=== PATIENT | female | born 1970 | race Caucasian/White ===

== ENCOUNTER 2019-11-07 10:24 | Emergency (ER) | payer OTHER ==
[~2019-11-07] VITALS: Ht 170.2 cm; Wt 65.8 kg
--- NOTE | 2019-11-07 10:51 | Emergency Room Report ---
History of Present Illness General Chief Complaint: Back Pain-No Injury Source: Patient Present Illness HPI Patient is a 49-year-old female presents after increased right-sided flank pain. She reports having prior history of kidney stones intermittently. States he is had multiple episodes of similar symptoms in the past associated with some right-sided flank pain as well as urinary hesitancy. Reports having previous UVJ stones. Denies any vomiting. Had recent visit to her primary care and apparently had some bilirubinuria. Allergies: Coded Allergies: CEFTRIAXONE (Verified Allergy, Intermediate, itchiness, 11/07/19) MORPHINE (Verified Allergy, Unknown, 11/07/19) TRAZODONE (Verified Allergy, Unknown, 11/07/19) COVID-19 Screening Contact w/high risk pt: No Recent Travel to affected area: No Experienced COVID-19 symptoms?: No Patient History Past Medical History: see triage record Last Menstrual Period: hysterectomy Now: No Reviewed Nursing Documentation: PMH: Agreed; PSxH: Agreed Nursing Documentation-PMH Past Medical History: No History, Except For Hx Diabetes: Yes Hx Cancer: Yes - left breast Review of Systems All Other Systems: negative except mentioned in HPI Physical Exam Vital Signs Date Time Temp Pulse Resp B/P (MAP) Pulse Ox O2 Delivery O2 Flow Rate FiO2 11/07/19 10:30 98.4 75 20 118/67 (84) 94 Room Air Sp02 EP Interpretation: reviewed, normal General Appearance: normal inspection, well appearing, no apparent distress, alert, GCS 15 Head: atraumatic ENT: normal ENT inspection, hearing grossly normal, normal voice Neck: normal inspection, full range of motion, supple, no bony tend Respiratory: normal inspection, no respiratory distress, no retraction Cardiovascular #1: no edema Gastrointestinal: normal inspection, soft Musculoskeletal: normal inspection, back normal, normal range of motion Neurologic: alert, motor strength/tone normal, demand manager III-XII nml as tested, oriented x3, responsive, speech normal, normal inspection Psychiatric: normal inspection, judgement/insight normal, mood/affect normal Skin: no rash Medical Decision Making Diagnostic Impression: Primary Impression: Kidney stone on right side Additional Impression: Urinary tract infection ER Course Patient presented for flank pain. Differential diagnosis include was not limited to urinary tract infection, pyelonephritis, kidney stone among others. Because of complexity of patient's case laboratory tests and imaging studies were ordered. Patient was given IV fluids as well as IV Toradol. As she started on IV antibiotics. Patient does not appear to have any definite evidence of hydronephrosis. patient was noted to have some increased itchiness after being given Rocephin. Patient subsequently requested IV Benadryl. Patient was given Benadryl as well as Solu-Medrol but does not appear to have any evidence of acute urticarial reaction at this time. Skin appeared to be normal without any evidence of urticaria or discoloration.Patient states that she is taken Rocephin in the past. She states she is previously also taken Keflex. Patient be given prescription for Bactrim. Ultrasound showed no evidence of hydronephrosis.Patient will be discharged home. Patient states she has previously scheduled urology appointment and will follow-up with urologist. This medical record is generated with [employer] collar stay fuser tender software. There may be some collar stay fuser tender discrepancies related to use of this software Labs Test 11/07/19 11:11 White Blood Count 14.0 K/UL (4.8-10.8) Red Blood Count 5.24 M/UL (4.20-5.40) Hemoglobin 16.4 G/DL (12.0-16.0) Hematocrit 47.6 % (37.0-47.0) Mean Corpuscular Volume 91 FL (80-99) Mean Corpuscular Hemoglobin 31.4 PG (27.0-31.0) Mean Corpuscular Hemoglobin Concent 34.5 G/DL (32.0-36.0) Red Cell Distribution Width 12.4 % (11.6-14.8) Platelet Count 318 K/UL (150-450) Mean Platelet Volume 6.3 FL (6.5-10.1) Neutrophils (%) (Auto) 64.8 % (45.0-75.0) Lymphocytes (%) (Auto) 27.0 % (20.0-45.0) Monocytes (%) (Auto) 4.4 % (1.0-10.0) Eosinophils (%) (Auto) 2.5 % (0.0-3.0) Basophils (%) (Auto) 1.4 % (0.0-2.0) Urine Color Pale yellow Urine Appearance Cloudy Urine pH 8 (4.5-8.0) Urine Specific [place] 1.020 (1.005-1.035) Urine Protein Negative (NEGATIVE) Urine Glucose (UA) Negative (NEGATIVE) Urine Ketones Negative (NEGATIVE) Urine Blood 1+ (NEGATIVE) Urine Nitrite Negative (NEGATIVE) Urine Bilirubin Negative (NEGATIVE) Urine Urobilinogen Normal MG/DL (0.0-1.0) Urine Leukocyte Esterase 2+ (NEGATIVE) Urine RBC 2-4 /HPF (0 - 2) Urine WBC 10-15 /HPF (0 - 2) Urine Squamous Epithelial Cells Few /LPF (NONE/OCC) Urine Amorphous Sediment Many /LPF (NONE) Urine Bacteria Few /HPF (NONE) Sodium Level 144 MMOL/L (136-145) Potassium Level 4.5 MMOL/L (3.5-5.1) Chloride Level 104 MMOL/L (98-107) Carbon Dioxide Level 29 MMOL/L (21-32) Anion Gap 11 mmol/L (5-15) Blood Urea Nitrogen 16 mg/dL (7-18) Creatinine 1.0 MG/DL (0.55-1.30) Estimat Glomerular Filtration Rate 58.5 mL/min (>60) Glucose Level 92 MG/DL (74-106) Calcium Level 9.8 MG/DL (8.5-10.1) Total Bilirubin 0.4 MG/DL (0.2-1.0) Aspartate Amino Transf (AST/SGOT) 19 U/L (15-37) Alanine Aminotransferase (ALT/SGPT) 23 U/L (12-78) Alkaline Phosphatase 68 U/L (46-116) Total Protein 7.8 G/DL (6.4-8.2) Albumin 4.0 G/DL (3.4-5.0) Globulin 3.8 g/dL Albumin/Globulin Ratio 1.1 (1.0-2.7) Lipase 142 U/L (73-393) Last Vital Signs Date Time Temp Pulse Resp B/P (MAP) Pulse Ox O2 Delivery O2 Flow Rate FiO2 11/07/19 10:30 98.4 75 20 118/67 (84) 94 Room Air Status: improved Disposition: HOME, SELF-CARE Condition: Stable Scripts Trimethoprim/Sulfamethoxazole 160/800* (BACTRIM DS TABLET*) 1 Each Tablet 1 TAB ORAL Q12H, #14 TAB 0 Refills Prov: Juan Francisco Adoron MD 11/07/19 Juan Francisco Adorno MD November 07, 2019 10:51
[2019-11-07 11:00] VITALS: BP 118/67
[2019-11-07] MEDS ORDERED: Ketorolac 30mg Inj IV ONE ×2 (11:00→12:00)
--- NOTE | 2019-11-07 11:05 | NUR ---
ED Nurse Note: Patient walked in to ER from home due to right flank and right groin pain x 3 weeks. States pain when urinating. No blood in urine. Patient stated had 13 surgeries regarding kidney stones. Patient presented calm, AAO x4, VSS at this time, skin is warm to touch.
--- NOTE | 2019-11-07 11:15 | NUR ---
ED Nurse Note: US by bed side
[2019-11-07 11:28] LABS: BASOPHILS % (AUTO) 1.4 % (0.0-2.0); EOSINOPHILS % (AUTO) 2.5 % (0.0-3.0); HEMATOCRIT 47.6 % (37.0-47.0); HEMOGLOBIN 16.4 G/DL (12.0-16.0); MEAN CORPUSCULAR VOLUME 91 FL (80-99); MONOCYTES % (AUTO) 4.4 % (1.0-10.0); NEUTROPHILS % (AUTO) 64.8 % (45.0-75.0); PLATELET COUNT 318 K/UL (150-450); RED BLOOD COUNT 5.24 M/UL (4.20-5.40); RED CELL DISTRIBUTION WIDTH 12.4 % (11.6-14.8)
[2019-11-07 11:34] LABS: APPEARANCE,URINE CLOUDY; BILIRUBIN, URINE NEGATIVE (NEGATIVE); COLOR,URINE PALE YELLOW; GLUCOSE, URINE (UA) NEGATIVE (NEGATIVE); KETONES,URINE NEGATIVE (NEGATIVE); LEUKOCYTE ESTERASE ,URINE 2+ (NEGATIVE); NITRITE,URINE NEGATIVE (NEGATIVE); PH,URINE 8 (4.5-8.0); PROTEIN,URINE NEGATIVE (NEGATIVE); UROBILINOGEN,URINE NORMAL MG/DL (0.0-1.0)
[2019-11-07] MEDS ORDERED: cefTRIAXone 1 GM in NS 55 ML IVPB ONE (11:45)
--- NOTE | 2019-11-07 11:50 | Diagnostic Imaging Report ---
EXAM: US Abdomen Complete CLINICAL HISTORY: ABD PAIN TECHNIQUE: Real-time ultrasound of the abdomen (complete) with image documentation. COMPARISON: No relevant prior studies available. FINDINGS: Liver: Liver diameter of 14 cm. No visible parenchymal lesions. No intrahepatic biliary ductal dilatation. Gallbladder: Unremarkable. No gallstones. No wall thickening. No pericholecystic fluid. Common bile duct: Common bile duct diameter of 5.2 mm, within normal limits. Pancreas: Unremarkable as visualized. Pancreatic body and tail are obscured by bowel gas. Kidneys: Multiple echogenic shadowing stones throughout both kidneys, largest measuring 1.1 cm in the left lower renal pole. Right kidney length of 11.7 cm. Left kidney length of 11.8 cm. Normal cortical thickness. No visible parenchymal lesions. No hydronephrosis. Spleen: Spleen diameter of 9.9 cm, within normal limits. Aorta: Visualized portions of the aorta appear unremarkable. Inferior vena cava: Visualized portions of the IVC appear unremarkable. IMPRESSION: Bilateral nonobstructive nephrolithiasis, with the largest stone measuring 1.1 cm in the left kidney. No hydronephrosis.
[2019-11-07 11:56] LABS: ANION GAP 11 mmol/L (5-15); BLOOD UREA NITROGEN 16 mg/dL (7-18); CALCIUM 9.8 MG/DL (8.5-10.1); CARBON DIOXIDE 29 MMOL/L (21-32); CHLORIDE 104 MMOL/L (98-107); POTASSIUM 4.5 MMOL/L (3.5-5.1); SODIUM 144 MMOL/L (136-145)
[2019-11-07 12:01] LABS: ALANINE AMINOTRANSFERASE 23 U/L (12-78); ALBUMIN/GLOBULIN RATIO 1.1 (1.0-2.7); ALKALINE PHOSPHATASE 68 U/L (46-116); ASPARTATE AMINO TRANSFERASE 19 U/L (15-37); BILIRUBIN,TOTAL 0.4 MG/DL (0.2-1.0)
--- NOTE | 2019-11-07 12:02 | NUR ---
ED Nurse Note: rocephin ceftriaxone 1 g infused as ordered. infusion finished. patient then suddenly reports extreme itchiness all over her body. notified to Dr. Adorno.
--- NOTE | 2019-11-07 12:05 | NUR ---
ED Nurse Note: Dr. Adorno at bedside assessing patient. patient reports itchiness all over her body, changing in her voice and her mouth feels weird. patient placed on a pastry assistant. vital signs stable. see vitals flowsheet.
[2019-11-07] MEDS ORDERED: DiphenhydrAMINE 50mg/ml Inj ONE (12:07)
[2019-11-07] MEDS ORDERED: Solu-MEDROL 125mg Inj ONE (12:07)
[2019-11-07 12:12] VITALS: BP 109/65
[2019-11-07] MEDS ORDERED: DiphenhydrAMINE 50mg/ml Inj IVP ONE (12:15)
[2019-11-07] MEDS ORDERED: Solu-MEDROL 125mg Inj IVP ONE (12:15)
[2019-11-07] MEDS ORDERED: BACTRIM DS TAB1 EAC1 ORAL (13:34)
[2019-11-07 13:50] VITALS: BP 109/65
--- NOTE | 2019-11-07 13:50 | NUR ---
ER DISCHARGE NOTE: Patient is cleared to be discharged per ERMD DR MATTHEW, pt is aox4, on room air, with stable vital signs. pt was given dc and prescription instructions, pt was able to verbalize understanding, pt id band and iv site removed without complications. pt is able to ambulate with steady gait. pt took all belongings.
== END 2019-11-07 13:50 | disposition home or self-care (01) ==
LOC: EMR 11:05
DX: N20.0 Calculus of kidney (principal); N39.0 Urinary tract infection, site not specified; E11.9 Type 2 diabetes mellitus without complications; Z85.3 Personal history of malignant neoplasm of breast; Z88.6 Allergy status to analgesic agent; Z88.8 Allergy status to other drugs, medicaments and biological substances
CPT/HCPCS: 36415; 76700; 80053; 81003; 83690; 85025; 87086; 96365; 96375; J0696; J1200; J1885; J2930; Z7502; 99284

== ENCOUNTER 2020-03-21 16:08 | Emergency (ER) | payer OTHER ==
[~2020-03-21] VITALS: Ht 167.6 cm; Wt 68.0 kg
[~2020-03-21 16:08] MED LIST: BACTRIM DS TAB1 EAC1 ORAL
--- NOTE | 2020-03-21 16:26 | NUR ---
ED Nurse Note: urine sent to lab
[2020-03-21] MEDS ORDERED: Ketorolac 30mg Inj IV ONE (16:30)
[2020-03-21] MEDS ORDERED: Omnipaque-300 100ml vial INJ PRN (16:30)
[2020-03-21 17:08] LABS: APPEARANCE,URINE SLIGHTLY CLOUDY; BILIRUBIN, URINE NEGATIVE (NEGATIVE); GLUCOSE, URINE (UA) NEGATIVE (NEGATIVE); KETONES,URINE NEGATIVE (NEGATIVE); LEUKOCYTE ESTERASE ,URINE 3+ (NEGATIVE); NITRITE,URINE NEGATIVE (NEGATIVE); PH,URINE 6.5 (4.5-8.0); PROTEIN,URINE NEGATIVE (NEGATIVE); UROBILINOGEN,URINE NORMAL MG/DL (0.0-1.0)
[2020-03-21 17:12] LABS: COLOR,URINE YELLOW
[2020-03-21 17:57] LABS: BASOPHILS % (AUTO) 1.8 % (0.0-2.0); EOSINOPHILS % (AUTO) 3.6 % (0.0-3.0); HEMATOCRIT 46.6 % (37.0-47.0); HEMOGLOBIN 15.7 G/DL (12.0-16.0); LYMPHOCYTES % (AUTO) 26.4 % (20.0-45.0); MEAN CORPUSCULAR VOLUME 93 FL (80-99); MONOCYTES % (AUTO) 7.6 % (1.0-10.0); NEUTROPHILS % (AUTO) 60.6 % (45.0-75.0); PLATELET COUNT 288 K/UL (150-450); RED BLOOD COUNT 5.02 M/UL (4.20-5.40); RED CELL DISTRIBUTION WIDTH 13.7 % (11.6-14.8); WHITE BLOOD COUNT 16.3 K/UL (4.8-10.8)
[2020-03-21 17:59] VITALS: BP 119/78
--- NOTE | 2020-03-21 18:01 | NUR ---
ED Nurse Note:pt. came with c/o nausea vomiting abdominal pain, blood sent to labs, given iv meds and fluids
[2020-03-21 18:13] LABS: ANION GAP 10 mmol/L (5-15); BLOOD UREA NITROGEN 20 mg/dL (7-18); CALCIUM 8.7 MG/DL (8.5-10.1); CARBON DIOXIDE 26 MMOL/L (21-32); CHLORIDE 104 MMOL/L (98-107); CREATININE 0.8 MG/DL (0.55-1.30); SODIUM 140 MMOL/L (136-145)
[2020-03-21 18:18] LABS: ALANINE AMINOTRANSFERASE 40 U/L (12-78); ALBUMIN 3.5 G/DL (3.4-5.0); ALBUMIN/GLOBULIN RATIO 0.8 (1.0-2.7); ALKALINE PHOSPHATASE 68 U/L (46-116); ASPARTATE AMINO TRANSFERASE 63 U/L (15-37); BILIRUBIN,TOTAL 0.6 MG/DL (0.2-1.0)
[2020-03-21 18:26] LABS: POTASSIUM 5.3 MMOL/L (3.5-5.1)
--- NOTE | 2020-03-21 19:39 | NUR ---
ED Nurse Note: Patient returned from radiology from CT without incident. Patient reconnected to IV fluids.
--- NOTE | 2020-03-21 20:06 | Diagnostic Imaging Report ---
EXAM: CT Abdomen and Pelvis With Intravenous Contrast CLINICAL HISTORY: ABD PAIN RLQ abd pain that radiates to rt flank x 2 weeks. TECHNIQUE: Axial computed tomography images of the abdomen and pelvis with intravenous contrast. CTDI is 5.90 mGy and DLP is 304.60 mGy-cm. One or more of the following dose reduction techniques were used: automated exposure control, adjustment of the mA and/or kV according to patient size, use of iterative reconstruction technique. COMPARISON: No relevant prior studies available. FINDINGS: Lung bases: Mild hypoventilatory changes are noted in the lung bases. ABDOMEN: Liver: No discrete mass. The portal veins are patent. Gallbladder and bile ducts: The gallbladder is contracted. No pericholecystic inflammatory changes are gallbladder wall thickening. Dilated intrahepatic bile duct measuring 7.3 mm (4: 23). The common bile duct measures 8 mm (4: 34), but appears thickened vertebral normal caliber distally. Pancreas: Unremarkable. No mass. No ductal dilation. Spleen: Unremarkable. No splenomegaly. Adrenals: Unremarkable. No mass. Kidneys and ureters: Bilateral renal cortical scarring. Bilateral nephrolithiasis the largest in the lower pole of the left kidney measuring 12 mm (4:42). Punctate right lower pole renal stone (4: 37). No hydronephrosis. No hydroureter or urolithiasis within the bladder or ureters. Stomach and bowel: Unremarkable. No obstruction. No mucosal thickening. PELVIS: Appendix: Appendix not reliably identified but no inflammatory findings to suggest acute appendicitis in the right lower quadrant. Bladder: Unremarkable. Reproductive: The uterus is not visualized. No adnexal masses are seen. ABDOMEN and PELVIS: Intraperitoneal space: Unremarkable. No free air. No significant fluid collection. Bones/joints: No acute fracture. T12 vertebral body height loss which appears chronic. Soft tissues: Unremarkable. Vasculature: Unremarkable. No abdominal aortic aneurysm. Lymph nodes: No abnormal appearing lymph nodes. IMPRESSION: 1. Bilateral nephrolithiasis. No ureteral or bladder stones. No hydronephrosis or hydroureter. Bilateral renal cortical scarring. 2. No acute findings identified within the abdomen or pelvis. 3. Intra-and extra hepatic biliary ductal dilatation, etiology not seen on this exam. Correlate with the appropriate labs if there is clinical concern for biliary obstruction. <MYCVCSECTION> Communications: 03/21/20 20:13 Call Nurse Call communication cancelled per radiologist
--- NOTE | 2020-03-21 20:22 | Emergency Room Report ---
History of Present Illness General Chief Complaint: Abdominal Pain Source: Patient Present Illness HPI 50-year-old female with history of multiple stones, status post appendectomy, oophorectomy, here complaining 1week right lower quadrant pain with radiation to right back. Complains of nausea however denies vomiting diarrhea. Denies fever and chills. The pain 5-10, intermittent. Denies any urinary frequency and urgency. Complains of small amount of hematuria. Patient had a hysterectomy 9 years ago. Has not taken medication for symptom relief. Has had obstructive renal stones in the past. Is sitting comfortably with stable signs. Reports that she however denies tobacco or alcohol intake. 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 COVID-19 Screening: Negative COVID-19 COVID-19 Testing Source: feb 19 at work Patient History Past Medical History: see triage record Past Surgical History: none Pertinent Family History: none Last Menstrual Period: none Now: No Immunizations: UTD Reviewed Nursing Documentation: PMH: Agreed; PSxH: Agreed Nursing Documentation-PMH Past Medical History: No History, Except For Hx Diabetes: Yes Hx Cancer: Yes - left breast Review of Systems All Other Systems: negative except mentioned in HPI Physical Exam Vital Signs Date Time Temp Pulse Resp B/P (MAP) Pulse Ox O2 Delivery O2 Flow Rate FiO2 03/21/20 16:15 98.2 91 18 119/78 (92) 95 Room Air Sp02 EP Interpretation: reviewed, normal General Appearance: no apparent distress, alert, GCS 15, non-toxic Head: normocephalic, atraumatic Eyes: bilateral eye normal inspection, bilateral eye PERRL ENT: hearing grossly normal, normal pharynx, no angioedema, normal voice Neck: full range of motion, supple/symm/no masses Respiratory: chest non-tender, lungs clear, normal breath sounds, speaking full sentences Cardiovascular #1: regular rate, rhythm, no edema Gastrointestinal: normal bowel sounds, non tender, soft, no mass, no organomegaly, no peritonitis, no bruit, non-distended, no guarding, no hernia, no pulsatile mass, no rebound Rectal: deferred Genitourinary: no CVA tenderness Musculoskeletal: back normal Neurologic: alert, motor strength/tone normal, oriented x3, sensory intact, responsive, speech normal Psychiatric: judgement/insight normal, memory normal, mood/affect normal, no suicidal/homicidal ideation Skin: no rash Lymphatic: no adenopathy Medical Decision Making PA Attestation ALL Diagnosis and treatment plan reviewed and discussed with my supervising physician Dr. Escobar Diagnostic Impression: Primary Impression: Renal stone Additional Impression: UTI (urinary tract infection) ER Course 50-year-old female with history of multiple stones, status post appendectomy, oophorectomy, here complaining 1week right lower quadrant pain with radiation to right back. Complains of nausea however denies vomiting diarrhea. Denies fever and chills. The pain 5-10, intermittent. Denies any urinary frequency and urgency. Complains of small amount of hematuria. Patient had a hysterectomy 9 years ago. Has not taken medication for symptom relief. Has had obstructive renal stones in the past. Is sitting comfortably with stable signs. Reports that she however denies tobacco or alcohol intake. Ddx considered but are not limited to: appendicitis, cholecystis, gastritis, UTI, pyelonephritis, diverticulitis, renal stone Vital signs: are WNL, pt. is afebrile H&PE are most consistent with: Nonobstructive renal stone multiple however size has not been mention the CT report, ORDERS: abdominal CT with contrast was ordered to rule out postsurgical adhesion as well as pyelonephritis, renal stone, abdominal pain set, Macrobid ED INTERVENTIONS: NS bolus, Toradol, Zofran DISCHARGE: At this time pt. is stable for d/c to home. Will provide printed patient care instructions, and any necessary prescriptions. Care plan and follow up instructions have been discussed with the patient prior to discharge. Patient take medication as directed, follow-up with urologist, increase oral hydration, if worsening symptoms return to the emergency room CT/MRI/US Diagnostic Results CT/MRI/US Diagnostic Results : Imaging Test Ordered: CT abdomen pelvis with contrast Impression Lung bases: Mild hypoventilatory changes are noted in the lung bases. ABDOMEN: Liver: No discrete mass. The portal veins are patent. Gallbladder and bile ducts: The gallbladder is contracted. No pericholecystic inflammatory changes are gallbladder wall thickening. Dilated intrahepatic bile duct measuring 7.3 mm (4: 23). The common bile duct measures 8 mm (4: 34), but appears thickened vertebral normal caliber distally. Pancreas: Unremarkable. No mass. No ductal dilation. Spleen: Unremarkable. No splenomegaly. Adrenals: Unremarkable. No mass. Kidneys and ureters: Bilateral renal cortical scarring. Bilateral nephrolith iasis the largest in the lower pole of the left kidney measuring 12 mm (4:42). Punctate right lower pole renal stone (4: 37). No hydronephrosis. No hydroureter or urolithiasis within the bladder or ureters. Stomach and bowel: Unremarkable. No obstruction. No mucosal thickening. PELVIS: Appendix: Appendix not reliably identified but no inflammatory findings to suggest acute appendicitis in the right lower quadrant. Bladder: Unremarkable. Reproductive: The uterus is not visualized. No adnexal masses are seen. ABDOMEN and PELVIS: Intraperitoneal space: Unremarkable. No free air. No significant fluid collection. Bones/joints: No acute fracture. T12 vertebral body height loss which appears chronic. Soft tissues: Unremarkable. Vasculature: Unremarkable. No abdominal aortic aneurysm. Lymph nodes: No abnormal appearing lymph nodes. IMPRESSION: 1. Bilateral nephrolithiasis. No ureteral or bladder stones. No hydronephrosis or hydroureter. Bilateral renal cortical scarring. 2. No acute findings identified within the abdomen or pelvis. 3. Intra-and extra hepatic biliary ductal dilatation, etiology not seen on this exam. Correlate with the appropriate labs if there is clinical concern for biliary obstruction. Last Vital Signs Date Time Temp Pulse Resp B/P (MAP) Pulse Ox O2 Delivery O2 Flow Rate FiO2 03/21/20 18:05 98.2 03/21/20 17:59 91 18 119/78 95 Room Air Disposition: HOME, SELF-CARE Condition: Stable Scripts Nitrofurantoin Monohyd/M-Cryst* (MACROBID 100 MG*) 100 Mg Capsule 100 MG ORAL EVERY 12 HOURS for 7 Days, #14 CAP Prov: Flower Patrick 03/21/20 Patient Instructions: Kidney Stones, [id number], Urinary Tract Infection, [id number] Additional Instructions: Take medication as directed, follow with primary care provider, increase oral hydration, if worsening symptoms return to the emergency room. Also follow-up with a urologist Flower Patrick Mar 21, 2020 20:22
[2020-03-21] MEDS ORDERED: NITROFURANTOIN100 M2 ORAL (20:30)
--- NOTE | 2020-03-21 20:48 | NUR ---
ER DISCHARGE NOTE: Patient is cleared to be discharged per ER provider. Patient ID band removed, Patient IV removed. Patient verbalized understanding of discharge instructions. Patient rendered copy of all labs performe prior to departure. Patient is ambulatory with steady gait, able to ambulate to the restroom prior to departure. Patient departed with all belongings.
[2020-03-21 20:51] VITALS: BP 120/82
--- NOTE | 2020-03-22 17:43 | Cardiology Report ---
APPROVED REPORT EKG Measurement Heart [id number] <Conclusion> Normal sinus rhythm Normal ECG
== END 2020-03-21 21:09 | disposition home or self-care (01) ==
LOC: EMR 20:50
DX: N20.0 Calculus of kidney (principal); N39.0 Urinary tract infection, site not specified; E11.9 Type 2 diabetes mellitus without complications; Z85.3 Personal history of malignant neoplasm of breast; Z88.6 Allergy status to analgesic agent; Z90.89 Acquired absence of other organs; Z90.721 Acquired absence of ovaries, unilateral; Z90.710 Acquired absence of both cervix and uterus; R31.9 Hematuria, unspecified; M54.9 Dorsalgia, unspecified
CPT/HCPCS: 36415; 74177; 80053; 80307; 81003; 83690; 84484; 85025; 85610; 85730; 87086; 93005; 96361; 96372; 96374; 96375; J1885; J2405; J2550; J7030; Q9965; Z7502; 99284

== ENCOUNTER 2020-04-14 13:54 | Emergency (ER) | payer OTHER ==
[~2020-04-14] VITALS: Ht 167.6 cm; Wt 70.8 kg
[~2020-04-14 13:54] MED LIST changes: +NITROFURANTOIN100 M2 ORAL
[2020-04-14 14:12] VITALS: BP 118/74
[2020-04-14] MEDS ORDERED: Aspirin Baby 81mg ORAL ONE (14:15)
--- NOTE | 2020-04-14 14:17 | Emergency Room Report ---
History of Present Illness General Chief Complaint: Chest Pain Source: Patient Present Illness HPI 50-year-old female with history of recurrent nephrolithiasis status post lithotripsy, tobacco abuse, and marijuana use who presents to the ER with complaint of R sided nonradiating intermittent chest tightness that began at 3 AM. Is also associated with nausea that resolved prior to arrival to ED. States she does not currently have chest pain. Patient was already awake when the pain started. The pain was unprovoked and is non exertional. She endorses a family history of aortic aneurysm and is wondering if we can check for that. Denies shortness of breath, dyspnea on exertion, vomiting, diarrhea, recent travel, history of blood clot, melena, hematochezia, hematuria, flank pain, rash, focal weakness or other symptoms The patient's symptoms were gradual onset, severity was moderate, duration since 3 AM, intermittent. Quality: Sharp Past medical history: Recurrent nephrolithiasis Past surgical history: Lithotripsy, partial nephrectomy, hysterectomy Smoking: Half a pack a day of tobacco for 12 years Alcohol use: Denies Drug use: Marijuana Review of systems: CONST: No fevers or chills, No night sweats PULMONARY: No productive cough, No shortness of breath CARDIAC: ++ chest pain, No palpitations GI: No vomiting, No diarrhea , No melena_or_BRBPR : No dysuria, No hematuria, No discharge NEURO: No new_focal_weakness_or_numbness, No confusion, No vision changes 14 point Review of Systems is otherwise negative except per HPI Physical Exam: GENERAL: Awake_alert_ nontoxic, no acute distress Spo2 96% on RA -normal EYES: Extraocular muscles are intact. Conjunctivae clear. Lids without swelling ENT: External nose and ear normal_in_appearance. Oropharynx clear. Head_atraumatic, Moist_oral_mucosa NECK: No JVD. No meningismus. No thyromegaly. Supple. Trachea midline RESP: Normal respiratory effort. Symmetric rise. No stridor. Clear_to_auscultation_No_rales_No_wheezes CARDIAC: Regular rate and regular rhytm. No_significant pedal edema. Reproducible R chest wall pain with palpation. ABDOMEN: Soft. Nondistended. Nontender_No_rebound_or_guarding. MSK: Normal muscle tone, without rigidity. Extremities without asymmetric deformity or swelling. SKIN: Warm and dry. No visible cyanosis or pallor NEUROLOGIC: Alert, oriented x3. Motor_and_sensation_grossly_intact. No truncal ataxia. Gait_normal Psych: Normal mood and affect, normal judgment and insight - COORDINATION OF CARE Case was discussed with: Patient , Patient's Physician Any labs and imaging that were ordered were interpreted as part of the medical decision making: RUQ US from october 2019 showed liver diameter 14 cm with no visible lesions. No intrahepatic biliary ductal dilation Gallbladder was negative for gallstones and wall thickening. CBD was within normal limits Medical Decision Making/Plan: Differential diagnosis includes acute myocardial infarction, acute coronary syndrome and unstable angina, pulmonary embolism, pneumothorax, pneumonia, and aortic dissection, among others. Patient is currently well appearing with stable vitals. EKG shows NSR. No evidence of STEMI, and initial troponin is negative. Chest xray shows no evidence of pneumothorax, pneumonia, or significant pleural effusion. Labs show no acute abnormalities. CTA c/a/p shows no evidence of aneurysm, dissection, PE, pneumonia. Pt's pain has completely resolved on evaluation. I suspect pain is likely 2/2 musculoskeletal chest wall pain. Acute coronary syndrome is unlikely and the patient is low risk, pain is atypical, nonexertional, and troponin is negative with over 6 hrs of symptoms. The pain is not classic for pericarditis or myocarditis, and the patient has no significant risk factors for a pericardial effusion and has stable vitals signs, unlikely to have tamponade. Pain is not likely to be pulmonary embolism The patient has no significant risk factors for aortic dissection, no history of connective tissue disorder, and the patients pain is not severe, radiating to the back, or tearing in nature. They have normal bilateral radial and pedal pulses. Patient observed for several hours in the ED, ECG with no emergent findings, patient discharged with no dangerous vital signs, patient instructed to follow up with PMD in the next 1-2 days to be referred for a treadmill stress test within the next 48-72 hours. HEART score < 4, which indicates low risk, so the patient can be safely discharged with the understanding that they need to make an appointment with a primary care doctor to be referred for a stress test within the next 48-72 hours, or if they cannot arrange that they are to return to the ED, or sooner than that if they have any changing, persistent, or worsening symptoms. Allergies: Coded Allergies: CEFTRIAXONE (Verified Allergy, Intermediate, itchiness, 11/07/19) MORPHINE (Verified Allergy, Unknown, 11/07/19) TRAZODONE (Verified Allergy, Unknown, 11/07/19) COVID-19 Screening Contact w/high risk pt: No Recent Travel to affected area: No Experienced COVID-19 symptoms?: No COVID-19 Testing performed EXTRUSION PRESS SUPERVISOR: No COVID-19 Screening: Negative COVID-19 COVID-19 Testing Source: 02/19 Patient History Last Menstrual Period: 2009 Now: No Nursing Documentation-PMH Past Medical History: No History, Except For Hx Diabetes: Yes Hx Cancer: Yes - left breast Physical Exam Vital Signs Date Time Temp Pulse Resp B/P (MAP) Pulse Ox O2 Delivery O2 Flow Rate FiO2 04/14/20 13:56 98.6 89 18 118/74 (89) 94 Room Air Sp02 EP Interpretation: reviewed, normal Medical Decision Making Diagnostic Impression: Primary Impression: Chest wall pain Additional Impressions: Fatty liver Renal stone EKG Diagnostic Results Troponin ordered: Yes When was troponin ordered?: Apr 14, 2020 EKG Time: 14:13 Rate: normal Rhythm: NSR ST Segments: no acute changes ASA given to the pt in ED: Yes PA Scribe Text 12-lead EKG (interpreted by me) Time: 1409 Indication: Rhythm analysis Tracing visualized and Interpreted by me. Rhythm: Normal sinus rhythm Rate: 97 bpm QTc: 474 Morphology: No_significant_ST_elevations_or_depressions, No STEMI Impression: Normal_sinus_rhythm_without_significant_abnormality nonspecific changes.. Isolated T wave inversion in lead III. No contiguous changes. Rhythm Strip Diag. Results Rhythm Strip Time: 14:14 EP Interpretation: yes Rate: 90 Rhythm: NSR, no PVC's, no ectopy Chest X-Ray Diagnostic Results Chest X-Ray Diagnostic Results : EARNEST Mat[place] Chuy Chest X-Ray: Views: 1 view(s) Indication: Chest pain Findings: Normal heart size. Mediastinum normal. No infiltrate. Impression: NAD The X-ray(s) were independently viewed and interpreted contemporaneously Electronically signed by , Radha Martin DO CT/MRI/US Diagnostic Results CT/MRI/US Diagnostic Results : Impression CTA Chest Abd/Pel w Contrast CLINICAL INDICATION:Chest pressure COMPARISON: No comparison chest CT. There is comparison abdomen pelvis CT dated 03/21/2020 FINDINGS Chest: No evidence of thoracic aortic aneurysm or dissection. Normal caliber and classic branching anatomy of the great neck vessels. Exam protocols not tailored for exclusion of pulmonary embolus, but the pulmonary arteries are well- opacified and no filling defects or other findings to suggest acute pulmonary embolus are demonstrated. Normal caliber pulmonary arteries. Normal heart size. The lungs demonstrate posterior dependent atelectatic changes. Some groundglass opacity in the left lower lobe is nonspecific. A few tiny bullae are seen scattered throughout both upper lobes. The heart size is normal. No pericardial effusion. No mediastinal or hilar mass or adenopathy. The included thyroid is unremarkable. No axillary or chest wall mass or adenopathy. Surgical clips are seen in the left breast. Abdomen pelvis: No evidence of abdominal aortic aneurysm or dissection demonstrated. Normal caliber and branching anatomy of the abdominal visceral vessels. Patent nonstenotic bilateral common and external iliac arteries. The liver is mildly hypoattenuating, consistent with fatty change. The gallbladder, bile ducts, pancreas, spleen, adrenals are unremarkable. There is an accessory splenule. The kidneys are lobulated bilaterally, consistent with scarring. A 3 mm calcification is seen in the right lower pole collecting system. Multiple calcifications are seen in the left lower pole collecting system, largest measuring 13 mm in diameter. No ureteral calculi, hydronephrosis, or hydroureter. No definite parenchymal mass or cyst demonstrated. No retroperitoneal or mesenteric mass or adenopathy. No pelvic mass or adenopathy. The uterus is absent. No evidence of diverticulosis or diverticulitis. The appendix is not definitely visualized, but no findings to suggest acute appendicitis are evident. No small bowel distention. No free or loculated intraperitoneal gas or fluid is evident. IMPRESSION: No acute abnormality No evidence of thoracic or abdominal aortic aneurysm or dissection Posterior dependent pulmonary atelectatic changes Few tiny bullae in the upper lobes may indicate early COPD changes Fatty liver Nonobstructive bilateral intrarenal calculi Postsurgical changes as described, including prior hysterectomy, prior left breast surgery Reevaluation Time: 16:55 Last Vital Signs Date Time Temp Pulse Resp B/P (MAP) Pulse Ox O2 Delivery O2 Flow Rate FiO2 04/14/20 13:56 98.6 89 18 118/74 (89) 94 Room Air Status: improved Disposition: HOME, SELF-CARE Admit Decision Time: 16:55 Condition: Stable Scripts Naproxen* (NAPROXEN*) 500 Mg Tablet. 500 MG ORAL TWICE A DAY for 14 Days, #28 TAB Prov: Radha Martin D.O. 04/14/20 Referrals: [facility],REFERR[facility] (PCP) Patient Instructions: Nonspecific Chest Pain Additional Instructions: Instructions for patient/product distribution specialist: Follow up with your physician in 1-2 days. Follow-up with your doctor sooner if your condition requires a more timely clinical reevaluation. Return to the emergency department immediately if you feel that your condition is worsening or if you have any new or concerning symptoms. Review your discharge instructions and take any prescriptions given as instructed. [facility] PROVIDES FREE OR LOW-COST HEALTH SERVICES TO PEOPLE WHO CAN SHOW PROOF THAT THEY LIVE IN [facility]. TO FIND MORE CLINICS PARTNERED WITH [facility] TO PROVIDE SERVICE, PLEASE CALL . Radha Martin D.O. Apr 14, 2020 14:17
--- NOTE | 2020-04-14 14:29 | NUR ---
ED Nurse Note: Patient walked in from home due to chest pain, left side, radiates to left shoulder and arm x 1 day. Patient has even non labored breathing, AAO x4, VSS at this time, skin is warm to touch.
--- NOTE | 2020-04-14 14:30 | NUR ---
ED Nurse Note: IV line was established on left forearm blood collected sent to lab
[2020-04-14 14:38] LABS: BASOPHILS % (AUTO) 1.9 % (0.0-2.0); EOSINOPHILS % (AUTO) 3.7 % (0.0-3.0); HEMATOCRIT 46.6 % (37.0-47.0); HEMOGLOBIN 16.3 G/DL (12.0-16.0); LYMPHOCYTES % (AUTO) 27.6 % (20.0-45.0); MEAN CORPUSCULAR VOLUME 88 FL (80-99); MONOCYTES % (AUTO) 6.9 % (1.0-10.0); NEUTROPHILS % (AUTO) 59.8 % (45.0-75.0); PLATELET COUNT 285 K/UL (150-450); RED BLOOD COUNT 5.32 M/UL (4.20-5.40); RED CELL DISTRIBUTION WIDTH 12.1 % (11.6-14.8)
[2020-04-14 14:56] LABS: ANION GAP 7 mmol/L (5-15); BLOOD UREA NITROGEN 17 mg/dL (7-18); CALCIUM 9.2 MG/DL (8.5-10.1); CARBON DIOXIDE 31 MMOL/L (21-32); CHLORIDE 103 MMOL/L (98-107); CREATININE 0.9 MG/DL (0.55-1.30); SODIUM 141 MMOL/L (136-145)
[2020-04-14 15:08] LABS: ALANINE AMINOTRANSFERASE 31 U/L (12-78); ALBUMIN 3.8 G/DL (3.4-5.0); ALBUMIN/GLOBULIN RATIO 0.9 (1.0-2.7); ALKALINE PHOSPHATASE 65 U/L (46-116); ASPARTATE AMINO TRANSFERASE 24 U/L (15-37); BILIRUBIN,TOTAL 0.5 MG/DL (0.2-1.0)
[2020-04-14] MEDS ORDERED: Omnipaque-300 100ml vial INJ ONE (16:00)
--- NOTE | 2020-04-14 16:01 | NUR ---
ED Nurse Note: Patient was taken to CT via [email or web address]
--- NOTE | 2020-04-14 16:48 | Diagnostic Imaging Report ---
CLINICAL INDICATION:Chest pressure TECHNIQUE: Arterial phase spiral acquisitions obtained through the chest, abdomen, and pelvis. Multiplanar reconstructions were generated. Total dose length product 394 mGycm. CTDIvol(s) 2, 34, 5 mGy. Radiation dose was minimized using automated exposure control COMPARISON: No comparison chest CT. There is comparison abdomen pelvis CT dated 03/21/2020 FINDINGS Chest: No evidence of thoracic aortic aneurysm or dissection. Normal caliber and classic branching anatomy of the great neck vessels. Exam protocols not tailored for exclusion of pulmonary embolus, but the pulmonary arteries are well-opacified and no filling defects or other findings to suggest acute pulmonary embolus are demonstrated. Normal caliber pulmonary arteries. Normal heart size. The lungs demonstrate posterior dependent atelectatic changes. Some groundglass opacity in the left lower lobe is nonspecific. A few tiny bullae are seen scattered throughout both upper lobes. The heart size is normal. No pericardial effusion. No mediastinal or hilar mass or adenopathy. The included thyroid is unremarkable. No axillary or chest wall mass or adenopathy. Surgical clips are seen in the left breast. Abdomen pelvis: No evidence of abdominal aortic aneurysm or dissection demonstrated. Normal caliber and branching anatomy of the abdominal visceral vessels. Patent nonstenotic bilateral common and external iliac arteries. The liver is mildly hypoattenuating, consistent with fatty change. The gallbladder, bile ducts, pancreas, spleen, adrenals are unremarkable. There is an accessory splenule. The kidneys are lobulated bilaterally, consistent with scarring. A 3 mm calcification is seen in the right lower pole collecting system. Multiple calcifications are seen in the left lower pole collecting system, largest measuring 13 mm in diameter. No ureteral calculi, hydronephrosis, or hydroureter. No definite parenchymal mass or cyst demonstrated. No retroperitoneal or mesenteric mass or adenopathy. No pelvic mass or adenopathy. The uterus is absent. No evidence of diverticulosis or diverticulitis. The appendix is not definitely visualized, but no findings to suggest acute appendicitis are evident. No small bowel distention. No free or loculated intraperitoneal gas or fluid is evident. IMPRESSION: No acute abnormality No evidence of thoracic or abdominal aortic aneurysm or dissection Posterior dependent pulmonary atelectatic changes Few tiny bullae in the upper lobes may indicate early COPD changes Fatty liver Nonobstructive bilateral intrarenal calculi Postsurgical changes as described, including prior hysterectomy, prior left breast surgery The CT scanner at [facility] is accredited by the [employer] and the scans are performed using protocols designed to limit radiation exposure to as low as reasonably achievable to attain images of sufficient resolution adequate for diagnostic evaluation.
--- NOTE | 2020-04-14 16:51 | Diagnostic Imaging Report ---
Indication: Chest pain Technique: One view of the chest Comparison: none Findings: The heart is upper limits normal in size. There are old healed right rib fracture deformities. Lungs and pleural spaces are clear. Impression: No acute process. Findings as noted
[2020-04-14] MEDS ORDERED: NAPROXEN500 M1 ORAL (16:55)
[2020-04-14 17:07] VITALS: BP 118/74
--- NOTE | 2020-04-14 17:08 | NUR ---
ER DISCHARGE NOTE: Patient is cleared to be discharged per ERMD, pt is aox4, on room air, with stable vital signs. pt was given dc and prescription instructions, pt was able to verbalize understanding, pt id band and iv site removed without complications. pt is able to ambulate with steady gait. pt took all belongings.
== END 2020-04-14 17:08 | disposition home or self-care (01) ==
LOC: EMR 14:08
DX: R07.89 Other chest pain (principal); K76.0 Fatty (change of) liver, not elsewhere classified; N20.0 Calculus of kidney; E11.9 Type 2 diabetes mellitus without complications; Z85.3 Personal history of malignant neoplasm of breast; Z88.5 Allergy status to narcotic agent; Z88.8 Allergy status to other drugs, medicaments and biological substances
CPT/HCPCS: 36415; 71045; 71275; 74175; 80053; 83690; 83880; 84484; 85025; 85610; 85730; 93005; Q9967; Z7502; 99284

== ENCOUNTER 2020-06-10 11:36 | Emergency (ER) | payer OTHER ==
[~2020-06-10] VITALS: Ht 167.6 cm; Wt 68.0 kg
[~2020-06-10 11:36] MED LIST changes: +NAPROXEN500 M1 ORAL
[2020-06-10 11:47] VITALS: BP 124/80
[2020-06-10] MEDS ORDERED: Tamsulosin 0.4mg cap ORAL SCH (12:00)
[2020-06-10] MEDS ORDERED: Ketorolac 30mg Inj IV ONE (12:00)
--- NOTE | 2020-06-10 12:02 | Emergency Room Report ---
History of Present Illness General Chief Complaint: Back Pain-No Injury Source: Patient Present Illness HPI 50-year-old female with history of frequent kidney stones for many years here with right flank pain. Patient says that it has been ongoing for about 2 weeks. She says that this is normal for her usual kidney stones. She takes Neurontin for her usual kidney stone pain but says that this has been inadequate over the past several days. Said that she underwent a CAT scan about 1 month ago and says that she gets frequent CAT scans. She is hoping to avoid getting a CAT scan today. Denies fevers, chills, chest pain, palpitation or shortness of breath, abdominal pain, nausea, vomiting, diarrhea, dysuria. Pain is sharp in nature, located in the right flank, does not otherwise radiate. 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 MANAGER: No Nursing Documentation-PMH Hx Diabetes: Yes Hx Cancer: Yes - left breast Review of Systems All Other Systems: negative except mentioned in HPI Physical Exam Vital Signs Date Time Temp Pulse Resp B/P (MAP) Pulse Ox O2 Delivery O2 Flow Rate FiO2 06/10/20 11:43 98.1 61 16 124/80 (95) 99 Room Air Sp02 EP Interpretation: reviewed, normal General Appearance: no apparent distress, alert, GCS 15, non-toxic Head: normocephalic, atraumatic Eyes: bilateral eye normal inspection, bilateral eye PERRL ENT: hearing grossly normal, normal pharynx, no angioedema, normal voice Neck: full range of motion, supple/symm/no masses Respiratory: chest non-tender, lungs clear, normal breath sounds, speaking full sentences Cardiovascular #1: regular rate, rhythm, no edema Cardiovascular #2: 2+ carotid (R), 2+ carotid (L), 2+ radial (R), 2+ radial (L), 2+ dorsalis pedis (R), 2+ dorsalis pedis (L) Gastrointestinal: normal bowel sounds, non tender, soft, non-distended, no guarding, no rebound Rectal: deferred Genitourinary: normal inspection, no CVA tenderness, CVA tenderness (R) Musculoskeletal: back normal, normal range of motion, gait/station normal, non- tender Neurologic: alert, motor strength/tone normal, oriented x3, sensory intact, responsive, speech normal Psychiatric: judgement/insight normal, memory normal, mood/affect normal, no suicidal/homicidal ideation Lymphatic: no adenopathy Medical Decision Making Diagnostic Impression: Primary Impression: Kidney stone ER Course Laboratory Tests Test 06/10/20 12:08 White Blood Count 8.7 K/UL (4.8-10.8) Red Blood Count 4.78 M/UL (4.20-5.40) Hemoglobin 14.9 G/DL (12.0-16.0) Hematocrit 43.5 % (37.0-47.0) Mean Corpuscular Volume 91 FL (80-99) Mean Corpuscular Hemoglobin 31.1 PG (27.0-31.0) H Mean Corpuscular Hemoglobin Concent 34.2 G/DL (32.0-36.0) Red Cell Distribution Width 13.9 % (11.6-14.8) Platelet Count 237 K/UL (150-450) Mean Platelet Volume 7.9 FL (6.5-10.1) Neutrophils (%) (Auto) 54.0 % (45.0-75.0) Lymphocytes (%) (Auto) 32.3 % (20.0-45.0) Monocytes (%) (Auto) 5.5 % (1.0-10.0) Eosinophils (%) (Auto) 7.0 % (0.0-3.0) H Basophils (%) (Auto) 1.2 % (0.0-2.0) Urine Color Pale yellow Urine Appearance Clear Urine pH 8 (4.5-8.0) Urine Specific [place] 1.010 (1.005-1.035) Urine Protein Negative (NEGATIVE) Urine Glucose (UA) Negative (NEGATIVE) Urine Ketones Negative (NEGATIVE) Urine Blood 2+ (NEGATIVE) H Urine Nitrite Negative (NEGATIVE) Urine Bilirubin Negative (NEGATIVE) Urine Urobilinogen Normal MG/DL (0.0-1.0) Urine Leukocyte Esterase 3+ (NEGATIVE) H Urine RBC 0-2 /HPF (0 - 2) Urine WBC 5-10 /HPF (0 - 2) H Urine Squamous Epithelial Cells Few /LPF (NONE/OCC) Urine Bacteria Few /HPF (NONE) Sodium Level 141 MMOL/L (136-145) Potassium Level 4.0 MMOL/L (3.5-5.1) Chloride Level 103 MMOL/L (98-107) Carbon Dioxide Level 33 MMOL/L (21-32) H Anion Gap 5 mmol/L (5-15) Blood Urea Nitrogen 17 mg/dL (7-18) Creatinine 1.0 MG/DL (0.55-1.30) Estimated Glomerular Filtration Rate 58.2 mL/min (>60) Glucose Level 136 MG/DL (74-106) H Calcium Level 8.6 MG/DL (8.5-10.1) Total Bilirubin 0.6 MG/DL (0.2-1.0) Aspartate Amino Transferase (AST) 34 U/L (15-37) Alanine Aminotransferase (ALT) 30 U/L (12-78) Alkaline Phosphatase 52 U/L (46-116) Total Protein 6.7 G/DL (6.4-8.2) Albumin 3.5 G/DL (3.4-5.0) Globulin 3.2 g/dL Albumin/Globulin Ratio 1.1 (1.0-2.7) 50-year-old female with history of frequent kidney stones here with right flank pain. Patient said that she underwent a CAT scan 1 month ago and says that she undergoes very frequent CAT scans. She was wishing to avoid CAT scan here in the emergency department. CBC and CMP were unremarkable. Patient did not have any evidence of acute kidney injury. Urinalysis also did not show any evidence of infection. No indication for antibiotics at this time. Patient has a follow-up appoint with her clinical nursing intern and her urologist later this week. She was given Toradol and Flomax with complete resolution of her pain. She was given a prescription for Flomax, [place], ibuprofen. She will follow-up with her clinical nursing intern and urologist. Told to come back to the emergency department for worsening pain, fevers, chills, dysuria. She expressed understanding and was discharged. Last Vital Signs Date Time Temp Pulse Resp B/P (MAP) Pulse Ox O2 Delivery O2 Flow Rate FiO2 06/10/20 11:47 98.1 61 16 124/80 99 Room Air Scripts Tamsulosin HCl (Flomax) 0.4 Mg Cap.er.24h 0.4 MG ORAL DAILY for BPH, #5 CAP Prov: Sarath Escobar M.D. 06/10/20 Hydrocodone Bit/Acetaminophen 5-325* (NORCO 5-325 TABLET*) 1 Each Tablet 1 TAB ORAL Q4H PRN for For Pain, #10 TAB Prov: Sarath Escobar M.D. 06/10/20 Sarath Escobar M.D. Jun 10, 2020 12:02
[2020-06-10 12:22] LABS: APPEARANCE,URINE CLEAR; BILIRUBIN, URINE NEGATIVE (NEGATIVE); COLOR,URINE PALE YELLOW; GLUCOSE, URINE (UA) NEGATIVE (NEGATIVE); KETONES,URINE NEGATIVE (NEGATIVE); LEUKOCYTE ESTERASE ,URINE 3+ (NEGATIVE); NITRITE,URINE NEGATIVE (NEGATIVE); PH,URINE 8 (4.5-8.0); PROTEIN,URINE NEGATIVE (NEGATIVE); UROBILINOGEN,URINE NORMAL MG/DL (0.0-1.0)
[2020-06-10 12:25] LABS: BASOPHILS % (AUTO) 1.2 % (0.0-2.0); HEMATOCRIT 43.5 % (37.0-47.0); HEMOGLOBIN 14.9 G/DL (12.0-16.0); LYMPHOCYTES % (AUTO) 32.3 % (20.0-45.0); MEAN CORPUSCULAR VOLUME 91 FL (80-99); MONOCYTES % (AUTO) 5.5 % (1.0-10.0); PLATELET COUNT 237 K/UL (150-450); RED BLOOD COUNT 4.78 M/UL (4.20-5.40); RED CELL DISTRIBUTION WIDTH 13.9 % (11.6-14.8); WHITE BLOOD COUNT 8.7 K/UL (4.8-10.8)
[2020-06-10 12:37] LABS: CALCIUM 8.6 MG/DL (8.5-10.1)
[2020-06-10 12:42] LABS: ALBUMIN 3.5 G/DL (3.4-5.0); ALBUMIN/GLOBULIN RATIO 1.1 (1.0-2.7); BILIRUBIN,TOTAL 0.6 MG/DL (0.2-1.0)
[2020-06-10] MEDS ORDERED: FLOMAX0.4 MG ORAL (12:54)
[2020-06-10] MEDS ORDERED: NORCO 5-325 TA1 EAC1 ORAL (12:54)
[2020-06-10 13:11] VITALS: BP 112/76
== END 2020-06-10 13:11 | disposition home or self-care (01) ==
LOC: EMR 12:20
DX: N20.0 Calculus of kidney (principal); Z87.442 Personal history of urinary calculi; E11.9 Type 2 diabetes mellitus without complications; Z85.3 Personal history of malignant neoplasm of breast; Z88.5 Allergy status to narcotic agent; Z88.8 Allergy status to other drugs, medicaments and biological substances
CPT/HCPCS: 36415; 80053; 81003; 85025; 96374; J1885; Z7502; 99284

== ENCOUNTER 2020-06-20 13:42 | Emergency (ER) | payer OTHER ==
[~2020-06-20] VITALS: Ht 167.6 cm; Wt 69.4 kg
[~2020-06-20 13:42] MED LIST changes: +FLOMAX0.4 MG ORAL; +NORCO 5-325 TA1 EAC1 ORAL
[2020-06-20 14:00] VITALS: BP 119/79
--- NOTE | 2020-06-20 14:00 | NUR ---
ED Nurse Note: Pt walked in to ED from home c/o right flank nad right groin pain x2 weeks. Pt was seen here last 06/10/20 for the same sx. Pt AAOx4, verbally responsive. No SOB, on room air. Afebrile.
--- NOTE | 2020-06-20 15:00 | NUR ---
ED Nurse Note: Urine sent to lab.
[2020-06-20] MEDS ORDERED: Tamsulosin 0.4mg cap ORAL ONE (15:15)
[2020-06-20] MEDS ORDERED: Ketorolac 30mg Inj IV ONE (15:15)
--- NOTE | 2020-06-20 15:15 | NUR ---
ED Nurse Note: Pt was taken to CT via wc.
[2020-06-20 15:32] LABS: APPEARANCE,URINE CLEAR; BILIRUBIN, URINE NEGATIVE (NEGATIVE); GLUCOSE, URINE (UA) NEGATIVE (NEGATIVE); KETONES,URINE NEGATIVE (NEGATIVE); LEUKOCYTE ESTERASE ,URINE 2+ (NEGATIVE); NITRITE,URINE NEGATIVE (NEGATIVE); PH,URINE 6.5 (4.5-8.0); PROTEIN,URINE NEGATIVE (NEGATIVE); UROBILINOGEN,URINE NORMAL MG/DL (0.0-1.0)
[2020-06-20 15:33] LABS: COLOR,URINE YELLOW
--- NOTE | 2020-06-20 15:37 | NUR ---
ED Nurse Note: Pt returned from CT.
[2020-06-20 15:54] LABS: BASOPHILS % (AUTO) 1.9 % (0.0-2.0); EOSINOPHILS % (AUTO) 5.4 % (0.0-3.0); HEMATOCRIT 44.9 % (37.0-47.0); HEMOGLOBIN 15.7 G/DL (12.0-16.0); LYMPHOCYTES % (AUTO) 31.4 % (20.0-45.0); MEAN CORPUSCULAR VOLUME 90 FL (80-99); MONOCYTES % (AUTO) 7.6 % (1.0-10.0); NEUTROPHILS % (AUTO) 53.8 % (45.0-75.0); PLATELET COUNT 263 K/UL (150-450); RED BLOOD COUNT 4.98 M/UL (4.20-5.40); RED CELL DISTRIBUTION WIDTH 12.9 % (11.6-14.8); WHITE BLOOD COUNT 14.2 K/UL (4.8-10.8)
[2020-06-20 16:03] LABS: ANION GAP 8 mmol/L (5-15); BLOOD UREA NITROGEN 20 mg/dL (7-18); CALCIUM 8.6 MG/DL (8.5-10.1); CARBON DIOXIDE 31 MMOL/L (21-32); CHLORIDE 101 MMOL/L (98-107); CREATININE 0.9 MG/DL (0.55-1.30); POTASSIUM 3.9 MMOL/L (3.5-5.1); SODIUM 140 MMOL/L (136-145)
[2020-06-20 16:08] LABS: ALANINE AMINOTRANSFERASE 33 U/L (12-78); ALBUMIN 3.7 G/DL (3.4-5.0); ALKALINE PHOSPHATASE 63 U/L (46-116); ASPARTATE AMINO TRANSFERASE 29 U/L (15-37); BILIRUBIN,TOTAL 0.4 MG/DL (0.2-1.0)
--- NOTE | 2020-06-20 16:14 | Diagnostic Imaging Report ---
Indication: Abdominal pain, right flank and groin pain Technique: Spiral acquisitions obtained through the abdomen and pelvis. No oral or IV contrast utilized, per urinary stone protocol. Multiplanar reconstructions were generated. Total dose length product 298 mGycm. CTDIvol(s) 5 mGy. Dose reduction achieved using automated exposure control and iterative reconstruction Comparison: 04/14/2020 CT angiogram Findings: Bilateral intrarenal calculi are again demonstrated. There is a cluster of calculi in the left lower pole calyx that in aggregate measures 12 mm in diameter. This is also evident previously. Another cluster is also demonstrated in a lower pole calyx which appears similar to the previous exam. There is a left renal cortical scar with some dystrophic calcification again noted. No ureteral calculi, hydronephrosis, or hydroureter demonstrated. Lack of IV contrast limits assessment of the renal parenchyma. No gross renal parenchymal mass or cyst demonstrated. Lack of IV contrast limits assessment of the other solid organs. The liver is unremarkable, previously demonstrated hypoattenuation not evident currently. Gallbladder, bile ducts, pancreas, spleen are all unremarkable. Accessory splenule is noted. The adrenals are unremarkable. The uterus is absent. No pelvic mass or adenopathy. The appendix is not definitely visualized, but no findings to suggest acute appendicitis are evident. There are a few colonic diverticula noted. No evidence of diverticulitis. No small bowel distention. No free or loculated intraperitoneal gas or fluid is evident. The distal esophagus, stomach, duodenum are unremarkable. The included lung bases demonstrate minimal posterior dependent atelectatic changes The bones demonstrate a compression fracture deformity of the T12 vertebral body which in retrospect is evident on the prior exam. Impression: Bilateral intrarenal calculi, more numerous on the left than on the right, also previously reported. No evidence of ureteral calculus, hydronephrosis, or hydroureter. No acute abnormality Colonic diverticulosis. No evidence of diverticulitis Old T12 compression fracture deformity Other findings as noted, including basilar pulmonary atelectatic changes, prior hysterectomy, accessory splenule The CT scanner at [facility] is accredited by the [employer] and the scans are performed using protocols designed to limit radiation exposure to as low as reasonably achievable to attain images of sufficient resolution adequate for diagnostic evaluation.
[2020-06-20] MEDS ORDERED: NORCO 5-325 TA1 EAC1 ORAL (16:24)
[2020-06-20] MEDS ORDERED: IBUPROFEN600 M1 ORAL (16:24)
[2020-06-20] MEDS ORDERED: BACTRIM DS TAB1 EAC1 ORAL (16:24)
[2020-06-20] MEDS ORDERED: FLOMAX0.4 MG ORAL (16:24)
[2020-06-20] MEDS ORDERED: Hydromorphone 0.5mg/0.5ml inj IVP ONE (16:30)
[2020-06-20 16:35] VITALS: BP 121/68
--- NOTE | 2020-06-20 16:35 | NUR ---
ED Nurse Note: Pt cleared by ERMD for discharge. DC instructions/prescription was given and explained to pt and verbalized understanding of teachings. All medical deviecs such as ID band and IV line removed. Pt is AAO x4, ambulatory and left with all personal belongings.
--- NOTE | 2020-06-20 17:08 | Emergency Room Report ---
History of Present Illness General Chief Complaint: Abdominal Pain Source: Patient Present Illness HPI 50-year-old female presents for evaluation. Complaining of right flank pain for the last 3 days. Dull, 8 out of 10, radiating towards the groin. History of kidney stones. Denies fevers or chills. Feels nausea. Was seen here recently for kidney stone pain. Was prescribed medication but but declined CT at this time because she has had too many CTs. States her pain is getting worse. No other aggravating relieving factors. Denies any other associated symptoms Allergies: Coded Allergies: CEFTRIAXONE (Verified Allergy, Intermediate, itchiness, 11/07/19) MORPHINE (Verified Allergy, Unknown, 11/07/19) TRAZODONE (Verified Allergy, Unknown, 11/07/19) COVID-19 Screening Contact w/high risk pt: No Recent Travel to affected area: No Experienced COVID-19 symptoms?: No COVID-19 Testing performed [employer]: No Patient History Past Medical History: DM, other - kidney stone Past Surgical History: none Pertinent Family History: none Social History: Denies: smoking, alcohol use, drug use Now: No Immunizations: UTD Reviewed Nursing Documentation: PMH: Agreed; PSxH: Agreed Nursing Documentation-PMH Past Medical History: No History, Except For Hx Diabetes: Yes Hx Cancer: Yes - left breast Review of Systems All Other Systems: negative except mentioned in HPI Physical Exam Vital Signs Date Time Temp Pulse Resp B/P (MAP) Pulse Ox O2 Delivery O2 Flow Rate FiO2 06/20/20 13:56 98.4 75 18 119/79 (92) 92 Room Air Sp02 EP Interpretation: reviewed, normal General Appearance: no apparent distress, alert, GCS 15, non-toxic Head: normocephalic, atraumatic Eyes: bilateral eye normal inspection, bilateral eye PERRL ENT: hearing grossly normal, normal pharynx, no angioedema, normal voice Neck: full range of motion, supple/symm/no masses Respiratory: chest non-tender, lungs clear, normal breath sounds, speaking full sentences Cardiovascular #1: regular rate, rhythm, no edema Cardiovascular #2: 2+ carotid (R), 2+ carotid (L), 2+ radial (R), 2+ radial (L), 2+ dorsalis pedis (R), 2+ dorsalis pedis (L) Gastrointestinal: normal bowel sounds, non tender, soft, non-distended, no guarding, no rebound Rectal: deferred Genitourinary: normal inspection, CVA tenderness (R) Musculoskeletal: back normal, normal range of motion, gait/station normal, non- tender Neurologic: alert, motor strength/tone normal, oriented x3, sensory intact, responsive, speech normal Psychiatric: judgement/insight normal, memory normal, mood/affect normal, no suicidal/homicidal ideation Reflexes: 3+ bicep (R), 3+ bicep (L), 3+ tricep (R), 3+ tricep (L), 3+ knee (R), 3+ knee (L) Lymphatic: no adenopathy Medical Decision Making Diagnostic Impression: Primary Impression: Kidney stone ER Course Hospital Course 50-year-old F presents to ED with R flank pain. h/o kidney stone Differential diagnosis includes-appendicitis, cholecystitis, kidney stone, pyelonephritis Clinical course Patient placed on stretcher. After initial history and physical I ordered labs, IV fluids, pain medications and CT scan Labs - noted leukocytosis, electrolytes ok, LFTs normal, UA - hematuria, bacteria noted CT scan shows intrarenal stones bilaterally. No hydronephrosis or hydroureter I discussed findings with patient. On reassessment pain improved. Will discharge home. Does not have a urologist I will provide referrals I feel this is a highly complex case requiring extensive working including EKG/Rhythm strip, Xray/CT/US, Blood/urine lab work, repeat exams while in ED, and administration of strong opiates/narcotics for pain control, admission to hospital or close patient follow up. Diagnosis - kidney stone Stable and discharged to home with Rx Motrin, [place], Flomax, Bactrim. Followup with PMD. Return to ED if symptoms recur or worsen Laboratory Tests Test 06/20/20 15:00 06/20/20 15:25 Urine Color Yellow Urine Appearance Clear Urine pH 6.5 (4.5-8.0) Urine Specific [place] 1.015 (1.005-1.035) Urine Protein Negative (NEGATIVE) Urine Glucose (UA) Negative (NEGATIVE) Urine Ketones Negative (NEGATIVE) Urine Blood 1+ (NEGATIVE) H Urine Nitrite Negative (NEGATIVE) Urine Bilirubin Negative (NEGATIVE) Urine Urobilinogen Normal MG/DL (0.0-1.0) Urine Leukocyte Esterase 2+ (NEGATIVE) H Urine RBC 5-10 /HPF (0 - 2) H Urine WBC 10-15 /HPF (0 - 2) H Urine Squamous Epithelial Cells Occasional /LPF Urine Bacteria Few /HPF (NONE) White Blood Count 14.2 K/UL (4.8-10.8) H Red Blood Count 4.98 M/UL (4.20-5.40) Hemoglobin 15.7 G/DL (12.0-16.0) Hematocrit 44.9 % (37.0-47.0) Mean Corpuscular Volume 90 FL (80-99) Mean Corpuscular Hemoglobin 31.5 PG (27.0-31.0) H Mean Corpuscular Hemoglobin Concent 34.9 G/DL (32.0-36.0) Red Cell Distribution Width 12.9 % (11.6-14.8) Platelet Count 263 K/UL (150-450) Mean Platelet Volume 7.7 FL (6.5-10.1) Neutrophils (%) (Auto) 53.8 % (45.0-75.0) Lymphocytes (%) (Auto) 31.4 % (20.0-45.0) Monocytes (%) (Auto) 7.6 % (1.0-10.0) Eosinophils (%) (Auto) 5.4 % (0.0-3.0) H Basophils (%) (Auto) 1.9 % (0.0-2.0) Sodium Level 140 MMOL/L (136-145) Potassium Level 3.9 MMOL/L (3.5-5.1) Chloride Level 101 MMOL/L (98-107) Carbon Dioxide Level 31 MMOL/L (21-32) Anion Gap 8 mmol/L (5-15) Blood Urea Nitrogen 20 mg/dL (7-18) H Creatinine 0.9 MG/DL (0.55-1.30) Estimat Glomerular Filtration Rate > 60 mL/min (>60) Glucose Level 79 MG/DL (74-106) Calcium Level 8.6 MG/DL (8.5-10.1) Total Bilirubin 0.4 MG/DL (0.2-1.0) Aspartate Amino Transf (AST/SGOT) 29 U/L (15-37) Alanine Aminotransferase (ALT/SGPT) 33 U/L (12-78) Alkaline Phosphatase 63 U/L (46-116) Total Protein 7.5 G/DL (6.4-8.2) Albumin 3.7 G/DL (3.4-5.0) Globulin 3.8 g/dL Albumin/Globulin Ratio 1.0 (1.0-2.7) Lipase 113 U/L (73-393) CT/MRI/US Diagnostic Results CT/MRI/US Diagnostic Results : Imaging Test Ordered: CT A/P Impression Procedure: CT Abdomen Pelvis WO Contrast Indication: Abdominal pain, right flank and groin pain Technique: Spiral acquisitions obtained through the abdomen and pelvis. No oral or IV contrast utilized, per urinary stone protocol. Multiplanar reconstructions were generated. Total dose length product 298 mGycm. CTDIvol(s) 5 mGy. Dose reduction achieved using automated exposure control and iterative reconstruction Comparison: 04/14/2020 CT angiogram Findings: Bilateral intrarenal calculi are again demonstrated. There is a cluster of calculi in the left lower pole calyx that in aggregate measures 12 mm in diameter. This is also evident previously. Another cluster is also demonstrated in a lower pole calyx which appears similar to the previous exam. There is a left renal cortical scar with some dystrophic calcification again noted. No ureteral calculi, hydronephrosis, or hydroureter demonstrated. Lack of IV contrast limits assessment of the renal parenchyma. No gross renal parenchymal mass or cyst demonstrated. Lack of IV contrast limits assessment of the other solid organs. The liver is unremarkable, previously demonstrated hypoattenuation not evident currently. Gallbladder, bile ducts, pancreas, spleen are all unremarkable. Accessory splenule is noted. The adrenals are unremarkable. The uterus is absent. No pelvic mass or adenopathy. The appendix is not definitely visualized, but no findings to suggest acute appendicitis are evident. There are a few colonic diverticula noted. No evidence of diverticulitis. No small bowel distention. No free or loculated intraperitoneal gas or fluid is evident. The distal esophagus, stomach, duodenum are unremarkable. The included lung bases demonstrate minimal posterior dependent atelectatic changes The bones demonstrate a compression fracture deformity of the T12 vertebral body which in retrospect is evident on the prior exam. Impression: Bilateral intrarenal calculi, more numerous on the left than on the right, also previously reported. No evidence of ureteral calculus, hydro nephrosis, or hydroureter. No acute abnormality Colonic diverticulosis. No evidence of diverticulitis Old T12 compression fracture deformity Other findings as noted, including basilar pulmonary atelectatic changes, prior hysterectomy, accessory splenule The CT scanner at [facility] is accredited by the [place] [employer] and the scans are performed using protocols designed to limit radiation exposure to as low as reasonably achievable to attain images of sufficient resolution adequate for diagnostic evaluation. Last Vital Signs Date Time Temp Pulse Resp B/P (MAP) Pulse Ox O2 Delivery O2 Flow Rate FiO2 06/20/20 16:35 98.4 82 16 121/68 96 Room Air Status: improved Disposition: HOME, SELF-CARE Condition: Stable Scripts Ibuprofen* (MOTRIN*) 600 Mg Tablet 600 MG ORAL Q8H PRN for FOR PAIN, #30 TAB 0 Refills Prov: Silviano Pope MD 06/20/20 Tamsulosin HCl (Flomax) 0.4 Mg Cap.er.24h 0.4 MG ORAL DAILY for BPH, #10 CAP Prov: Silviano Pope MD 06/20/20 Hydrocodone Bit/Acetaminophen 5-325* (NORCO 5-325 TABLET*) 1 Each Tablet 1 TAB ORAL Q6H PRN for FOR PAIN, #10 TAB 0 Refills Prov: Silviano Pope MD 06/20/20 Trimethoprim/Sulfamethoxazole 160/800* (BACTRIM DS TABLET*) 1 Each Tablet 1 TAB ORAL Q12H, #14 TAB 0 Refills Prov: Silviano Pope MD 06/20/20 Referrals: [facility],REFERRING (PCP) Delmar Masterson M.D. Patient Instructions: Renal Colic, [id number] Silviano Pope MD Jun 20, 2020 17:08
== END 2020-06-20 16:35 | disposition home or self-care (01) ==
LOC: EMR 15:32
DX: N20.0 Calculus of kidney (principal); Z88.6 Allergy status to analgesic agent; E11.9 Type 2 diabetes mellitus without complications; Z85.3 Personal history of malignant neoplasm of breast; D72.829 Elevated white blood cell count, unspecified; K57.90 Diverticulosis of intestine, part unspecified, without perforation or abscess without bleeding; Z90.710 Acquired absence of both cervix and uterus
CPT/HCPCS: 36415; 74176; 80053; 81003; 83690; 85025; 87086; 96374; 96375; J1170; J1885; Z7502; 99284